=== PATIENT | male | born 1955 | race Caucasian/White ===

== ENCOUNTER 2018-03-14 12:52 | Inpatient (IN) | payer OTHER ==
[~2018-03-14] VITALS: Ht 177.8 cm; Wt 84.6 kg
[~2018-03-14 12:52] MED LIST: FISH OIL; TRAMADOL HCL1 GM; WELCHOL625 MG PO
[2018-03-14 13:10] LABS: BASE EXCESS -4.1 mEq/L (-3 to +3); BICARBONATE 16.3 mEq/L (22-26); CARBOXY HGB 3.5 % (0-5); METHEMOGLOBIN 1.9 % (0-1.5); PCO2 20 mm Hg (35-45); PO2 244 mm Hg (80-100); SITE RR; pH 7.52 (7.35-7.45)
[2018-03-14 13:11] LABS: COMMENTS - BLOOD GASES A+C+; DEVICE NRBM; O2 FLOW 15 L/MIN; TOTAL RESP RATE 20 resp/min
[2018-03-14 13:28] LABS: BASOPHIL (%) 0.5 % (0-1); BASOPHIL COUNT 0.1 K/uL (0-0.1); EOSINOPHIL (%) 0.8 % (0-5); EOSINOPHIL COUNT 0.1 K/uL (0-0.3); HEMATOCRIT 47.7 % (38.0-50.0); HEMOGLOBIN 16.4 G/DL (12.5-16.6); IMMATURE GRANULOCYTE (%) 0.4 % (0.0-0.7); LYMPHOCYTE (%) 17.2 % (15-42); MCH 29.6 PG (29.0-34.0); MCHC 34.4 G/DL (30.0-36.0); MCV 86.1 FL (86-99); MONOCYTE (%) 6.4 % (3-12); MONOCYTE COUNT 0.8 K/uL (0-0.8); NEUTROPHIL (%) 74.7 % (45-76); NEUTROPHIL COUNT 8.8 K/uL (1.8-6.4); PLATELET COUNT 294 K/uL (156-360); RBC DIS.WIDTH-CV 12.6 % (11.8-14.6); RBC DIS.WIDTH-SD 39.9 % (39-53); RED BLOOD COUNT 5.54 M/uL (4.00-5.50); WHITE BLOOD COUNT 11.8 K/uL (4.1-10.2)
[2018-03-14 13:42] LABS: AMYLASE 85 IU/L (1-118); CHLORIDE 100 mEq/L (99-109); POTASSIUM 2.9 mEq/L (3.7-5.4); SODIUM 146 mEq/L (136-147)
[2018-03-14 13:44] LABS: GLUCOSE 141 mg/dL (70-99)
[2018-03-14 13:47] LABS: SERUM ETHYL ALCOHOL < 10 mg/dL
[2018-03-14 13:48] LABS: CREATININE 9.3 mg/dL (0.6-1.3); GFR ESTIMATE (CALCULATED) 6 mL/min/ (58.99-99999)
[2018-03-14 13:49] LABS: UREA NITROGEN (BUN) 67 mg/dL (9-23)
[2018-03-14 13:51] LABS: LIPASE 46 U/L (1.0-51.0)
[2018-03-14 14:10] LABS: ALBUMIN 4.5 g/dL (3.2-4.8)
[2018-03-14 14:13] LABS: TOTAL PROTEIN 7.9 g/dL (6.4-8.3)
[2018-03-14 14:15] LABS: TOTAL BILIRUBIN 1.3 mg/dL (0.0-1.0)
[2018-03-14 14:16] LABS: ALKALINE PHOSPHATASE 120 IU/L (3-129)
[2018-03-14 14:19] LABS: ALT (GPT) 28 IU/L (3-49); AST (GOT) 26 IU/L (2-34)
[2018-03-14 14:25] LABS: ALBUMIN 3.8 g/dL (3.2-4.8); CHLORIDE 101 mEq/L (99-109)
[2018-03-14 14:26] LABS: SODIUM 142 mEq/L (136-147)
[2018-03-14 14:28] LABS: GLUCOSE 114 mg/dL (70-99)
[2018-03-14 14:30] LABS: TOTAL BILIRUBIN 1.1 mg/dL (0.0-1.0)
[2018-03-14 14:31] LABS: ALKALINE PHOSPHATASE 100 IU/L (3-129); CREATININE 8.6 mg/dL (0.6-1.3); GFR ESTIMATE (CALCULATED) 7 mL/min/ (58.99-99999); TOTAL PROTEIN 6.5 g/dL (6.4-8.3)
[2018-03-14 14:33] LABS: AST (GOT) 21 IU/L (2-34); UREA NITROGEN (BUN) 67 mg/dL (9-23)
[2018-03-14 14:34] LABS: ALT (GPT) 23 IU/L (3-49)
[2018-03-14] MEDS ORDERED: PRINIVIL20 MG PO (16:54)
[2018-03-14] MEDS ORDERED: TRAMADOL HCL50 MG PO (16:55)
[2018-03-14] MEDS ORDERED: DOXYCYCLINE HY100 MG PO (16:56)
[2018-03-14] MEDS ORDERED: VITAMIN D2000 UNI1 PO (16:57)
[2018-03-14 17:29] VITALS: BP 114/67
[2018-03-14 18:05] LABS: CREATINE KINASE 76 IU/L (1-294)
[2018-03-14 18:22] LABS: CK-MB 0.4 ng/mL (0.0-4.9)
[2018-03-14 18:25] LABS: CKMB RELATIVE INDEX 0.5 (0.0-3.9); TOTAL CK 76 IU/L (1-294)
[2018-03-14 19:10] LABS: APPEARANCE CLEAR ((CLEAR)); BILIRUBIN NEGATIVE; BLOOD LARGE; COLOR YELLOW ((YELLOW)); GLUCOSE (STRIP) NEGATIVE; KETONES NEGATIVE; LEUKOCYTES NEGATIVE; NITRITE NEGATIVE; PROTEIN (STRIP) 30; SPECIFIC GRAVITY 1.034 (1.000-1.030); UROBILINOGEN 0.2 MG/DL (0.2-1.0)
[2018-03-14 19:31] LABS: RED BLOOD CELLS TNTC /HPF (0-5)
[2018-03-14 19:32] LABS: BACTERIA RARE /HPF; EPITHELIAL CELLS RARE /HPF; MUCUS RARE /LPF; UCUL ADDED? YES
[2018-03-14 19:57] LABS: UR CREATININE CONCENTRATION 191.6 MG/DL
[2018-03-14 19:57] LABS: BENZODIAZEPINES, URINE SCREEN Negative (200 ng/mL)
[2018-03-14 20:23] LABS: CHLORIDE 102 MEQ/L (99-109); GFR ESTIMATE (CALCULATED) 10 mL/min/ (58.99-99999); GLUCOSE 149 mg/dL (70-99); POTASSIUM 3.6 MEQ/L (3.7-5.4); SODIUM 139 MEQ/L (136-147); UREA NITROGEN (BUN) 66 mg/dL (9-23)
[2018-03-14 20:24] LABS: CREATININE 6.3 MG/DL (0.6-1.3)
[2018-03-14 23:16] VITALS: BP 91/54
[2018-03-15] VITALS (7 sets, daily range): BP systolic 81–137; BP diastolic 50–76
[2018-03-15 06:11] LABS: HEMATOCRIT 38.3 % (38.0-50.0); MCH 28.4 PG (29.0-34.0); MCHC 32.9 G/DL (30.0-36.0); MCV 86.3 FL (86-99); PLATELET COUNT 211 K/uL (156-360); RBC DIS.WIDTH-CV 12.7 % (11.8-14.6); RBC DIS.WIDTH-SD 40.5 % (39-53); WHITE BLOOD COUNT 8.5 K/uL (4.1-10.2)
[2018-03-15 06:12] LABS: HEMOGLOBIN 12.6 G/DL (12.5-16.6); RED BLOOD COUNT 4.44 M/uL (4.00-5.50)
[2018-03-15 06:29] LABS: CHLORIDE 108 MEQ/L (99-109); MAGNESIUM 2.1 mg/dl (1.3-2.7); PHOSPHORUS 4.5 mg/dL (2.5-4.9); SODIUM 141 MEQ/L (136-147); UREA NITROGEN (BUN) 62 mg/dL (9-23)
[2018-03-15 06:30] LABS: CREATININE 4.3 MG/DL (0.6-1.3); GFR ESTIMATE (CALCULATED) 15 mL/min/ (58.99-99999); GLUCOSE 85 mg/dL (70-99); POTASSIUM 4.4 MEQ/L (3.7-5.4)
[2018-03-15 09:58] LABS: HEMOGLOBIN A1c (GLYCOHEMOGLOB) 5.4 % (Below 5.7)
[2018-03-16 07:36] VITALS: BP 123/76
[2018-03-16 10:45] LABS: ALBUMIN 3.5 G/DL (3.2-4.8); CHLORIDE 113 MEQ/L (99-109); POTASSIUM 4.7 MEQ/L (3.7-5.4); SODIUM 145 MEQ/L (136-147)
[2018-03-16 10:46] LABS: CREATININE 1.3 MG/DL (0.6-1.3); GFR ESTIMATE (CALCULATED) > 59 mL/min/ (58.99-99999); GLUCOSE 120 mg/dL (70-99); PHOSPHORUS 1.9 mg/dL (2.5-4.9); UREA NITROGEN (BUN) 29 mg/dL (9-23)
[2018-03-16 15:34] VITALS: BP 171/87
[2018-03-16 20:30] VITALS: BP 145/84; BP 156/78
[2018-03-16 21:00] VITALS: BP 145/84
[2018-03-16 23:46] VITALS: BP 138/81
[2018-03-17 05:25] LABS: BASOPHIL (%) 0.9 % (0-1); BASOPHIL COUNT 0.1 K/uL (0-0.1); EOSINOPHIL (%) 2.4 % (0-5); EOSINOPHIL COUNT 0.2 K/uL (0-0.3); HEMATOCRIT 36.1 % (38.0-50.0); HEMOGLOBIN 11.8 G/DL (12.5-16.6); IMMATURE GRANULOCYTE (%) 0.3 % (0.0-0.7); LYMPHOCYTE (%) 30.1 % (15-42); LYMPHOCYTE COUNT 2.7 K/uL (1.0-2.8); MCH 28.6 PG (29.0-34.0); MCHC 32.7 G/DL (30.0-36.0); MCV 87.4 FL (86-99); MONOCYTE (%) 5.7 % (3-12); MONOCYTE COUNT 0.5 K/uL (0-0.8); NEUTROPHIL (%) 60.6 % (45-76); NEUTROPHIL COUNT 5.4 K/uL (1.8-6.4); PLATELET COUNT 204 K/uL (156-360); RBC DIS.WIDTH-CV 12.4 % (11.8-14.6); RBC DIS.WIDTH-SD 39.9 % (39-53); RED BLOOD COUNT 4.13 M/uL (4.00-5.50); WHITE BLOOD COUNT 8.8 K/uL (4.1-10.2)
[2018-03-17 06:18] LABS: CHLORIDE 112 MEQ/L (99-109); CREATININE 1.1 MG/DL (0.6-1.3); GFR ESTIMATE (CALCULATED) > 59 mL/min/ (58.99-99999); POTASSIUM 4.6 MEQ/L (3.7-5.4); SODIUM 143 MEQ/L (136-147); UREA NITROGEN (BUN) 22 mg/dL (9-23)
[2018-03-17 06:24] LABS: GLUCOSE 82 mg/dL (70-99); MAGNESIUM 1.6 mg/dl (1.3-2.7); PHOSPHORUS 2.9 mg/dL (2.5-4.9)
[2018-03-17 07:51] VITALS: BP 137/80
[2018-03-17] MEDS ORDERED: ASPIR-LOW81 MG PO (10:46)
== END 2018-03-17 12:22 | disposition home or self-care (01) | DRG 683 ==
LOC: TRA 12:52 → 3EAST 15:31 → EDOF 15:31 → ENRESERV 15:35 → 3EAST 17:06
PROVIDERS: Emergency Medicine; Family Medicine; Internal Medicine; Internal Medicine Nephrology
DX: N17.9 Acute kidney failure, unspecified (principal); R55 Syncope and collapse; R11.2 Nausea with vomiting, unspecified; M54.9 Dorsalgia, unspecified; E78.5 Hyperlipidemia, unspecified; I95.9 Hypotension, unspecified; E87.6 Hypokalemia; S20.229A Contusion of unspecified back wall of thorax, initial encounter; M06.9 Rheumatoid arthritis, unspecified; I10 Essential (primary) hypertension; E87.2 Acidosis; E87.3 Alkalosis; E86.0 Dehydration; I65.21 Occlusion and stenosis of right carotid artery; I65.23 Occlusion and stenosis of bilateral carotid arteries; F12.90 Cannabis use, unspecified, uncomplicated; E83.39 Other disorders of phosphorus metabolism; R29.6 Repeated falls; I95.1 Orthostatic hypotension; E87.0 Hyperosmolality and hypernatremia; E86.1 Hypovolemia; W18.2XXA Fall in (into) shower or empty bathtub, initial encounter; Y93.E1 Activity, personal bathing and showering; Z86.19 Personal history of other infectious and parasitic diseases; Z87.11 Personal history of peptic ulcer disease; Z79.899 Other long term (current) drug therapy; Z86.73 Personal history of transient ischemic attack (TIA), and cerebral infarction without residual deficits
CPT/HCPCS: 36600; 70450; 71045; 71260; 72125; 72129; 72132; 72170; 73630; 74177; 80048; 80048 91; 80053; 80069; 80306 90; 80400; 81003; 82024 90; 82150; 82533 91; 82550; 82553; 82570; 82803; 82948; 83036; 83690; 83735; 84100; 84156; 84300; 85025; 85027; 86850; 86900; 86901; 87040; 87086; 89190; 93005; 93306; 93880; 94799; 99281; 99285; G0480; J0834; J1100; J7030; J7040